=== PATIENT | female | born 1950 | race Caucasian/White ===

== ENCOUNTER 2023-11-21 13:51 | Observation (INO) | payer MEDICARE ==
[2023-11-21] MEDS ORDERED: Ondansetron PF 4 MG/2 ML Vial IVP PRN (15:18)
[2023-11-21] MEDS ORDERED: Acetaminophen 325 MG TAB PO PRN (15:18)
[2023-11-21] MEDS ORDERED: diphenhydrAMINE 50 MG/ML VIAL IVP PRN (15:18)
[2023-11-21] MEDS ORDERED: Morphine 4 MG/ML VIAL SLOW IVP PRN (15:18)
[2023-11-21 16:39] LABS: #Basophils 0.04 10x3/uL (0.0-0.2); #Eosinphils 0.19 10x3/uL (0.0-0.5); #Monocytes 0.45 10x3/uL (0.0-1.1); #Neutrophils 3.87 10x3/uL (1.5-8.4); %Basophils 0.7 % (0.0-2.0); %Eosinophils 3.3 % (0.0-6.0); %Lymphocytes 20.6 % (18.0-47.0); %Monocytes 7.8 % (0.0-10.0); %Neutrophils 67.4 % (40.0-75.0); Hematocrit 46.4 % (34.9-44.5); Hemoglobin 15.3 g/dL (12.0-15.5); Mean Corpuscular Hemoglobin 32.3 pg (27.0-33.0); Mean Corpuscular Volume 98.1 fL (81.6-98.3); Mean Platelet Volume 9.5 fL (7.4-10.4); Platelet Count 191 10x3/uL (150-450); RBC Distribution Width 14.8 % (11.5-14.5); Red Blood Cell (RBC) Count 4.73 10x6/uL (3.90-5.03); White Blood Cell (WBC) Count 5.7 10x3/uL (3.5-10.5)
[2023-11-21 16:42] LABS: ALT (SGPT) 19 U/L (8-55); Albumin 3.9 g/dL (3.4-4.8); Alkaline Phosphatase 61 U/L (40-110); Anion Gap 11 mmol/L (10-20); BUN (Urea Nitrogen) 13 mg/dL (9.8-20.1); Bilirubin, Total 0.9 mg/dL (0.2-1.2); Calc. Creatinine Clearance 0 mL/min (70-130); Calcium 9.8 mg/dL (7.8-10.44); Carbon Dioxide 20 mmol/L (23-31); Chloride 112 mmol/L (98-107); Estimated GFR 89; Globulin 2.9 g/dL (2.4-3.5); Glucose 100 mg/dL (83-110); Potassium 3.6 mmol/L (3.5-5.1); Protein, Total 6.8 g/dL (5.8-8.1); Sodium 139 mmol/L (136-145)
[2023-11-21 17:15] VITALS: BMI 34.2
[2023-11-21 17:32] LABS: AST (SGOT) 21 U/L (5-34)
[2023-11-21 20:17] LABS: Lavender RECEIVED; Red RECEIVED
[2023-11-21 21:22] LABS: INR-International Normal Ratio 2.5; PTT 41.4 sec (22.0-33.0); Prothrombin Time 25.3 sec (9.5-12.1)
[2023-11-21] MEDS: Morphine 2 MG/ML VIAL SLOW IVP PRN (22:29)
[2023-11-22 04:28] LABS: #Basophils 0.04 10x3/uL (0.0-0.2); #Eosinphils 0.27 10x3/uL (0.0-0.5); #Monocytes 0.57 10x3/uL (0.0-1.1); #Neutrophils 2.95 10x3/uL (1.5-8.4); %Basophils 0.8 % (0.0-2.0); %Eosinophils 5.6 % (0.0-6.0); %Monocytes 11.9 % (0.0-10.0); %Neutrophils 61.5 % (40.0-75.0); Hematocrit 43.1 % (34.9-44.5); Hemoglobin 14.5 g/dL (12.0-15.5); Mean Corpuscular HGB CONC 33.6 g/dL (32.0-36.0); Mean Corpuscular Volume 95.1 fL (81.6-98.3); Mean Platelet Volume 9.9 fL (7.4-10.4); Platelet Count 199 10x3/uL (150-450); RBC Distribution Width 15.2 % (11.5-14.5); Red Blood Cell (RBC) Count 4.53 10x6/uL (3.90-5.03); White Blood Cell (WBC) Count 4.8 10x3/uL (3.5-10.5)
[2023-11-22 04:35] LABS: INR-International Normal Ratio 2.6; Prothrombin Time 26.7 sec (9.5-12.1)
[2023-11-22 04:38] LABS: ALT (SGPT) 15 U/L (8-55); AST (SGOT) 18 U/L (5-34); Albumin 3.6 g/dL (3.4-4.8); Alkaline Phosphatase 60 U/L (40-110); Anion Gap 12 mmol/L (10-20); BUN (Urea Nitrogen) 13 mg/dL (9.8-20.1); Bilirubin, Total 0.7 mg/dL (0.2-1.2); Calc. Creatinine Clearance 97 mL/min (70-130); Calcium 9.7 mg/dL (7.8-10.44); Carbon Dioxide 22 mmol/L (23-31); Chloride 111 mmol/L (98-107); Estimated GFR 91; Glucose 96 mg/dL (83-110); Potassium 3.7 mmol/L (3.5-5.1); Protein, Total 5.6 g/dL (5.8-8.1); Sodium 141 mmol/L (136-145)
[2023-11-22] MEDS: Acetaminophen 500 MG TAB PO PRN (05:09)
[2023-11-22] MEDS: Levothyroxine Sodium 75 MCG TAB PO SCH (05:09)
[2023-11-22] MEDS: Benzocaine/Menthol 1 LOZ LOZ PO PRN (05:11)
[2023-11-22] MEDS: hydrALAZINE 25 MG TAB PO SCH (08:52)
[2023-11-22] MEDS: Losartan 50 MG TAB PO SCH (08:53)
[2023-11-22] MEDS: Cholecalciferol 1,000 UNITS (25 MCG) TAB PO SCH (08:53)
[2023-11-22] MEDS ORDERED: PARoxetine CR 12.5 MG ER.TAB PO SCH (09:00)
[2023-11-22 11:03] LABS: #Basophils 0.04 10x3/uL (0.0-0.2); #Eosinphils 0.24 10x3/uL (0.0-0.5); #Monocytes 0.47 10x3/uL (0.0-1.1); #Neutrophils 3.12 10x3/uL (1.5-8.4); %Basophils 0.8 % (0.0-2.0); %Lymphocytes 19.3 % (18.0-47.0); %Monocytes 9.8 % (0.0-10.0); %Neutrophils 64.7 % (40.0-75.0); Hemoglobin 14.2 g/dL (12.0-15.5); Mean Corpuscular Hemoglobin 31.7 pg (27.0-33.0); Mean Platelet Volume 9.7 fL (7.4-10.4); Platelet Count 196 10x3/uL (150-450); RBC Distribution Width 15.1 % (11.5-14.5); Red Blood Cell (RBC) Count 4.48 10x6/uL (3.90-5.03); White Blood Cell (WBC) Count 4.8 10x3/uL (3.5-10.5)
[2023-11-22 11:17] LABS: ALT (SGPT) 15 U/L (8-55); AST (SGOT) 17 U/L (5-34); Albumin 3.5 g/dL (3.4-4.8); Alkaline Phosphatase 62 U/L (40-110); Anion Gap 10 mmol/L (10-20); BUN (Urea Nitrogen) 12 mg/dL (9.8-20.1); Bilirubin, Total 0.7 mg/dL (0.2-1.2); Calc. Creatinine Clearance 100 mL/min (70-130); Calcium 9.8 mg/dL (7.8-10.44); Carbon Dioxide 22 mmol/L (23-31); Chloride 110 mmol/L (98-107); Estimated GFR 92; Globulin 2.3 g/dL (2.4-3.5); Glucose 121 mg/dL (83-110); Potassium 3.4 mmol/L (3.5-5.1); Protein, Total 5.8 g/dL (5.8-8.1); Sodium 139 mmol/L (136-145)
[2023-11-22 11:19] LABS: INR-International Normal Ratio 2.5; Prothrombin Time 25.7 sec (9.5-12.1)
[2023-11-22 12:46] VITALS: BP 120/73; TEMP 97.9
[2023-11-22] MEDS ORDERED: Potassium Chloride 20 MEQ TAB PO SCH (13:00)
[2023-11-22] MEDS ORDERED: Warfarin Sodium 5 MG TAB PO SCH (17:00)
[2023-11-22] MEDS ORDERED: Warfarin Sodium 2 MG TAB PO SCH (17:00)
[2023-11-22] MEDS ORDERED: Atorvastatin Calcium 10 MG TAB PO SCH (21:00)
== END 2023-11-22 13:20 | disposition home or self-care (01) ==
LOC: INTOOBSV 15:00 → CSHTELE 15:00
PROVIDERS: ADMIT Hospitalist; ATTEND Hospitalist
DX: T63.091A Toxic effect of venom of other snake, accidental (unintentional), initial encounter (principal); I10 Essential (primary) hypertension; E78.5 Hyperlipidemia, unspecified; I82.409 Acute embolism and thrombosis of unspecified deep veins of unspecified lower extremity; E03.9 Hypothyroidism, unspecified; Z79.890 Hormone replacement therapy; Z79.01 Long term (current) use of anticoagulants; Z79.899 Other long term (current) drug therapy; Z90.49 Acquired absence of other specified parts of digestive tract; Z44.9 Encounter for fitting and adjustment of unspecified external prosthetic device; Z98.49 Cataract extraction status, unspecified eye
CPT/HCPCS: 80053 ×3; 85025 ×3; 85384 ×2; 85610 ×3; 85730 ×3; J2272; 36415; 96374; G0378